=== PATIENT | female | born 1955 | race Caucasian/White ===

== ENCOUNTER → 2016-07-21 | Outpatient (CLI) | payer BC ==
[~2016-07-21] MED LIST: ARIMIDEX1 MG PO; ASPIRIN ADULT L81 M2 PO; CALTRATE 600 +1 TA1 PO; FISH OIL1000 MG PO
--- NOTE | 2016-07-27 11:14 | RADIOLOGY REPORT PS360 ---
US MAMMOTOME W/CLIP LT BREAST, US BREAST-LT COMPLETE W/AXILLA CLINICAL INDICATION: BREAST CA,LEFT BREAST MASS ORDERING PHYSICIAN: Kirk Goff MD PATIENT AGE: 60 years COMPARISON: Mammogram and ultrasound of 07/07/2016 Prebiopsy ultrasound: Prebiopsy ultrasound demonstrates suspicious nodules at 5:00 hypoechoic in nature and also at 9:00 not significant change from 07/07/2016. TECHNIQUE: Following obtaining informed consent under aseptic conditions and local anesthesia with 1% buffered lidocaine and a 16-gauge Zack-Cut biopsy needle, 4 passes were made into the 5:00 lesion initially and specimen given to pathology. Following this, 4 passes were made into the lesion at 9:00 with a different 16-gauge Zack-Cut biopsy needle. The patient tolerated the procedure well without evidence of pericolic locations. Pathology: 5:00 core biopsy, invasive ductal carcinoma 9:00 or biopsy, invasive ductal carcinoma IMPRESSION: Successful ultrasound-guided core biopsy of the left breast in 2 areas. Lesions are biopsied at 5:00 and 9:00 both showing invasive ductal carcinoma.
== END ==
LOC: RAD 09:41
PROC: 0HBU3ZX Excision of Left Breast, Percutaneous Approach, Diagnostic (ICD-10-PCS; principal; 2016-07-21)
DX: C50.912 Malignant neoplasm of unspecified site of left female breast (principal)